=== PATIENT | male | born 1975 | race Caucasian/White ===

== ENCOUNTER 2021-02-12 11:55 | Emergency (ER) | payer BC ==
[2021-02-12 12:02] VITALS: BP 138/97; PULSE 82; TEMP 98.1; BMI 27.3
[2021-02-12 12:30] LABS: HEMATOCRIT 44.3 % (35.4-49); HEMOGLOBIN 14.9 GM/dl (11.7-16.9); MCH 31.4 pg (25.7-33.7); MCHC 33.7 g/dl (32.0-35.9); MEAN CELL VOLUME 93.3 fl (80-96); MEAN PLT VOLUME 8.7 fl (7.5-11.1); PLATELET COUNT 176 10^3/uL (134-434); RBC 4.74 M/mm3 (4.00-5.60); RDW 12.1 % (11.9-15.9); WHITE BLOOD COUNT 4.2 K/mm3 (4.0-10.8)
[2021-02-12 12:35] LABS: ADD RBC MORPHOLOGY NO
[2021-02-12 13:00] LABS: ALBUMIN 4.4 g/dl (3.4-5.0); BILIRUBIN,TOTAL 0.8 mg/dl (0.2-1); CALCIUM 9.3 mg/dl (8.5-10); CREATININE 0.9 mg/dl (0.55-1.3); TOT PROT 7.6 g/dl (6.4-8.2)
[2021-02-12 13:08] LABS: PLATELET ESTIMATE ADEQUATE
== END 2021-02-12 14:33 | disposition home or self-care (01) ==
LOC: FER 11:55
DX: R10.9 Unspecified abdominal pain (principal)
CPT/HCPCS: 36415; 74177-TC; 80053; 85025; 99284-25; Q9967

== ENCOUNTER 2024-02-09 20:39 | Emergency (ER) | payer BC ==
[2024-02-09 20:56] VITALS: TEMP 98.3; BMI 26.6
[2024-02-09] MEDS ORDERED: ACETAMINOPHEN INJECTION 100 ML ONE (21:14)
[2024-02-09] MEDS: ACETAMINOPHEN 1000 MG/100 ML BAG IVPB ONE (21:27)
[2024-02-09 21:34] LABS: BASO % 0.4 % (0-2.0); EOS % 8.3 % (0-4.5); HEMATOCRIT 33.7 % (35.4-49); HEMOGLOBIN 10.7 GM/dL (11.7-16.9); LYMPH % 22.4 % (8-40); MCH 24.3 pg (25.7-33.7); MCHC 31.9 g/dl (32.0-35.9); MEAN CELL VOLUME 76.3 fl (80-96); MEAN PLT VOLUME 7.8 fl (7.5-11.1); MONO % 15.6 % (3.8-10.2); NEUT % 53.3 % (42.8-82.8); PLATELET COUNT 360 10^3/uL (134-434); RBC 4.42 M/mm3 (4.00-5.60); RDW 15.4 % (11.9-15.9); WHITE BLOOD COUNT 7.2 K/mm3 (4.0-10.0)
[2024-02-09 21:40] LABS: INR 1.04 (0.83-1.09)
[2024-02-09 21:43] LABS: ACTIVATED PTT 31.7 SECONDS (25.2-36.5)
[2024-02-09 22:10] LABS: POTASSIUM 3.8 mmol/L (3.5-5.1)
[2024-02-09 22:12] LABS: ALBUMIN 3.2 g/dl (3.4-5.0); CALCIUM 8.6 mg/dL (8.5-10.1)
[2024-02-09 22:13] LABS: BLOOD UREA NITROGEN 11.2 mg/dL (7-18)
[2024-02-09 22:15] LABS: CREATININE 0.9 mg/dL (0.55-1.3)
[2024-02-09 22:17] LABS: BILIRUBIN,TOTAL 0.4 mg/dL (0.2-1)
[2024-02-09 22:25] LABS: PH,URINE 5.5 (5.0-8.0); URINE APPEARANCE CLEAR; URINE BILIRUBIN NEGATIVE (NEGATIVE); URINE COLOR YELLOW; URINE GLUCOSE (UA) NEGATIVE (NEGATIVE); URINE KETONE 1+ (NEGATIVE); URINE LEUK ESTERASE NEGATIVE (NEGATIVE); URINE NITRITE NEGATIVE (NEGATIVE); URINE PROTEIN NEGATIVE (NEGATIVE); URINE UROBILINOGEN 0.2 mg/dL (0.2-1.0)
[2024-02-10] MEDS: ALPRAZolam 1 MG TABLET PO PRN (02:30)
[2024-02-10 02:53] VITALS: BP 146/92; PULSE 94; RESP 16
== END 2024-02-10 04:42 | disposition home or self-care (01) ==
LOC: JER 20:39
PROC: 3E033NZ Introduction of Analgesics, Hypnotics, Sedatives into Peripheral Vein, Percutaneous Approach (ICD-10-PCS; principal; 2024-02-09)
DX: R10.11 Right upper quadrant pain (principal); R11.0 Nausea; C78.7 Secondary malignant neoplasm of liver and intrahepatic bile duct; K63.89 Other specified diseases of intestine
CPT/HCPCS: 36415; 71260-TC; 74177-TC; 76705-TC; 80053; 81003; 83690; 85025; 85610; 85730; 99285-25; J0131; Q9967

== ENCOUNTER 2024-02-14 05:20 | Day surgery (SDC) | payer BC ==
[2024-02-13 11:45] VITALS: BMI 25.5
[2024-02-14 13:13] VITALS: TEMP 98
[2024-02-14 13:53] VITALS: PULSE 81; RESP 17
[2024-02-14 13:56] VITALS: BP 133/84
== END 2024-02-14 13:55 | disposition home or self-care (01) ==
LOC: JASU-ENDO 05:20
PROVIDERS: ATTEND Student in an Organized Health Care Education/Training Program
PROC: 0DBN8ZX Excision of Sigmoid Colon, Via Natural or Artificial Opening Endoscopic, Diagnostic (ICD-10-PCS; 2024-02-14)
PROC: 0DB98ZX Excision of Duodenum, Via Natural or Artificial Opening Endoscopic, Diagnostic (ICD-10-PCS; 2024-02-14)
PROC: 0DB78ZX Excision of Stomach, Pylorus, Via Natural or Artificial Opening Endoscopic, Diagnostic (ICD-10-PCS; 2024-02-14)
PROC: 0DB68ZX Excision of Stomach, Via Natural or Artificial Opening Endoscopic, Diagnostic (ICD-10-PCS; 2024-02-14)
PROC: 0DBP8ZX Excision of Rectum, Via Natural or Artificial Opening Endoscopic, Diagnostic (ICD-10-PCS; principal; 2024-02-14 12:00)
DX: C18.7 Malignant neoplasm of sigmoid colon (principal); D12.8 Benign neoplasm of rectum; K29.50 Unspecified chronic gastritis without bleeding
CPT/HCPCS: 88305-TC; 88341-TC; 88342-TC